=== PATIENT | male | born 1975 | race Asian ===

== ENCOUNTER 2024-06-26 12:03 | Emergency (ER) | payer OTHER, SELFPAY ==
[2024-06-26 12:07] VITALS: BP 111/84; PULSE 114; RESP 15; TEMP 36.9; O2SAT 95
--- NOTE | 2024-06-26 12:30 | DI.RAD_ITS ---
Exam(s) XR LUMBAR SPINE AP, LAT EXAM: XR LUMBAR SPINE AP, LAT CLINICAL HISTORY: BACK PAIN. TECHNIQUE: 2D digital imaging was performed. COMPARISON: No exams were available for comparison FINDINGS: Two views. No evidence of compression fracture or listhesis. The main finding here is a fracture of the posterior aspect of the right 11th rib, not displaced. Th ere is also a probable fracture of the right transverse process of L1. No 12th rib fracture identifi ed. IMPRESSION: Nondisplaced fracture of 11th right rib and possibly also right transverse process of L1. DATA REPOSITORY: RADIATION DOSE DELIVERED:
--- NOTE | 2024-06-26 12:30 | DI.RAD_ITS ---
Exam(s) XR THORACOLUMB JUNCT 2V EXAM: XR THORACOLUMB JUNCT 2V CLINICAL HISTORY: BACK PAIN. TECHNIQUE: 2D digital imaging was performed. COMPARISON: No exams were available for comparison FINDINGS: Two views-AP and lateral There is a nondisplaced fracture of the right 11th rib. There also appears to be a fracture of the r ight transverse process of L1. There does not appear to be a fracture in the ipsilateral 12th rib. There are no compression fractures in the thoracic spine up to the T5 level which is the uppermost fi eld of view of these images. No scoliosis. No disc space narrowing. No osseous lesions. IMPRESSION: Right 11th rib fracture and also fracture of the right transverse process of L1. DATA REPOSITORY: RADIATION DOSE DELIVERED:
--- NOTE | 2024-06-26 14:15 | DI.CT_ITS ---
Exam(s) CT THORACIC LUMBAR SPINE WO EXAM: CT THORACIC LUMBAR SPINE WO CLINICAL HISTORY: TRAUMA. TECHNIQUE: Imaging Protocol: Axial computed tomography images with coronal and sagittal reformatted images were created and reviewed. CONTRAST MATERIAL: Intravenous: None COMPARISON: Plain films earlier same day FINDINGS: THORACIC SPINAL COLUMN: There are acute fractures in the posterior aspect of the right 11th rib and right 12th ribs as well a s acute fractures of the right transverse process is of L1, L2, and L3. No left-sided fractures iden tified. There are no compression fractures nor listhesis. No obvious thoracic spine disc herniation s. There is no facet malalignment. No acute compromise of the spinal canal. No subjacent lung cont usion evident. LUMBOSACRAL SPINAL COLUMN: There are no compression fractures. As described above, there are acute fractures of the right trans verse process is of L1, L2, and L3 with moderate displacement at these fracture sites. No involvemen t of the pedicles and laminae. There are no osteophytic fragments in the spinal canal. No disc katina iations. Facet joints of the lumbosacral spine appear unremarkable. IMPRESSION: There are nondisplaced fractures of the posterior aspects of the right 11th and 12th ribs and there a re mildly displaced fractures of the right transverse process is of L1, and L2 and L3 vertebral yanelis s. There are no compression fractures of thoracic and lumbar vertebrae. No listhesis. There is no evidence of acute compromise of the spinal canal. Called by myself to ER physician 06/26/2024 3:15 p.m. RADIATION DOSE DELIVERED: 2,328.21mGy.cm Total DLP DATA REPOSITORY: All CT scans at this facility are submitted to the National Radiology Data Registry (NRDR) Dose Index Registry (DIR) with the [employer] (ACR). RADIATION OPTIMIZATION: All CT scans at this facility use at least one of these dose optimization te chniques: automated exposure control; mA and/or kV adjustment per patient size (includes targeted exa ms where dose is matched to clinical indication); or iterative reconstruction.
[2024-06-26] MEDS: Methocarbamol 500 MG TAB 1000 MG PO (15:23)
[2024-06-26] MEDS: Lidocaine 5% Patch 1 PATCH TP (15:23)
[2024-06-26 15:24] VITALS: BP 115/78; PULSE 78; RESP 16; TEMP 36.8; O2SAT 98
--- NOTE | 2024-06-26 15:24 | ED.GENADUL_ITS ---
Discharge Plan Disposition Patient Disposition: Home Condition: Stable Discharge Details Clinical Impression: Closed rib fracture, Fracture of transverse process of lumbar vertebra Primary Care Provider: None,None ED Provider: Shadia Childs Home Meds and New Rx's Prescriptions: New lidocaine [Lidoderm] 5 % adhesive patch,medicated 1 patch topical DAILY Qty: 15 0RF Rx Instructions: leave on most painful area for up to 12 hrs methocarbamol 750 mg tablet 750 mg PO TID PRN (Reason: spasms) Qty: 20 0RF epinephrine 0.3 mg/0.3 mL auto-injector 0.3 mg IM ONCE PRN (Reason: anaphylaxis) Qty: 2 0RF Rx Instructions: as a single dose; may repeat once No Action multivitamin Tablet 1 tab PO DAILY Discharge Instructions Additional Instructions: Your imaging today was reviewed by a charge master specialist, there is no indication for follow-up with a specialist when you return to [place]. You can follow-up with your PCP for any ongoing pain management needs. You can use the Lidoderm patches that were prescribed, Motrin or Tylenol as needed HPI General Date/Time Provider Initiated Documentation: 06/26/24 12:42 . Limitations to Documentation: no limitations . Information obtained by: patient . HPI Narrative: 48-year-old gentleman without significant past medical history presents for evaluation of acute onset back pain. Just prior to arrival patient slipped on the ice and fell against the stairs striking the middle of his back on the stairs. He did not hit his head or lose consciousness. He reports pain in the middle of his back. He denies any numbness or tingling. He reports no shortness of breath. Related Data Home Medications ?Medication ?Instructions ?Recorded ?Confirmed epinephrine 0.3 mg/0.3 mL 0.3 mg (0.3 mL) IM ONCE PRN 06/26/24 injection, auto-injector anaphylaxis #2 ea lidocaine 5 % topical patch 1 patch topical DAILY #15 ea 06/26/24 (Lidoderm) methocarbamol 750 mg tablet 750 mg PO TID PRN spasms #20 tabs 06/26/24 multivitamin 1 tab PO DAILY 06/26/24 06/26/24 Previous Rx's ?Medication ?Instructions ?Recorded epinephrine 0.3 mg/0.3 mL 0.3 mg (0.3 mL) IM ONCE PRN 06/26/24 injection, auto-injector anaphylaxis #2 ea lidocaine 5 % topical patch 1 patch topical DAILY #15 ea 06/26/24 (Lidoderm) methocarbamol 750 mg tablet 750 mg PO TID PRN spasms #20 tabs 06/26/24 Allergies Allergy/AdvReac Type Severity Reaction Status Date / Time bee venom protein (honey bee) Allergy Severe Anaphylaxis Verified 06/26/24 12:12 shellfish derived Allergy Severe Anaphylaxis Verified 06/26/24 12:12 General Stated Complaint: Nk/Back Pain JANE: 4 Exam Narrative Exam Narrative: Review of Systems: All systems reviewed & are unremarkable except as noted in HPI and below Well-developed, no acute distress NCAT PERRL, normal conjunctiva RRR Unlabored respiratory effort clear bilaterally No neurodeficits, full strength and sensation throughout Midline back tenderness with step-off around T12-L1 Course Vital Signs Vital signs: Vital Signs Temperature 36.9 C 06/26/24 12:07 Pulse 114 H 06/26/24 12:07 Respiratory Rate 15 06/26/24 12:07 Blood Pressure 111/84 06/26/24 12:07 Pulse Oximetry 95 06/26/24 12:07 Temperature 36.9 C 06/26/24 12:07 Pulse 114 H 06/26/24 12:07 Respiratory Rate 15 06/26/24 12:07 Respiratory Effort Normal 06/26/24 12:14 Blood Pressure 111/84 06/26/24 12:07 Blood Pressure Position Sitting 06/26/24 12:07 Pulse Oximetry 95 06/26/24 12:07 Oxygen Delivery Method Room Air 06/26/24 12:07 Oxygen Flow Rate 0 06/26/24 12:07 Pain Level 6 06/26/24 13:14 Medical Decision Making Emergent evaluation of acute traumatic back pain. There is an abnormality noted in the midline back. X-ray of this area was obtained. Patient states this pain is well-controlled did not require any pain medication at the initial evaluation. He is neurologically intact and I do not suspect an acute spinal cord pathology. X-ray images were concerning for fracture nondisplaced posterior rib 11 as well as the transverse process of L1 also nondisplaced. X- ray images were sent to the orthopedic spine service at [facility] who reviewed the images to provide guidance. We did not recommend CT imaging. Recommend pain control as needed. The patient lives in [place] and can follow-up with his PCP. They do not recommend follow-up with an acute spine service. A CT had been ordered prior to speaking with them, and I did cancel this study however the study was still performed. It does reveal that there are fractures at L1, 2 and 3 the transverse process noted. 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 He was provided with Lidoderm patch, a CD of his images to follow-up with his PCP. Recommend Robaxin, Tylenol and Motrin as needed. His fall, his EpiPen's were broken in his backpack and he also requested refill of these be sent to the pharmacy which I did. Quality:SDOH Health Related Social Needs: No Data to Display PFSH All Active Problems Fracture of transverse process of lumbar vertebra (Acute) Closed rib fracture (Acute) Social History Smoking risk assessment performed?: No PAWSS Have you Been Recently Intoxicated or Drunk Within the Last 30 days?: No Have you Ever Experienced Previous Episodes of Alcohol Withdrawal?: No Have you ever Experienced Withdrawal Seizures?: No Have you ever Experienced Delirium Tremens(DT)s?: No Have you ever undergone Alcohol Rehabilitation Treatment (i.e, inpt ot outpatient treatment programs)?: No Have you ever Experienced Blackouts?: No Have you ever Combined Alcohol with other Downers within the last 90 days?: No Have you ever Combined Alcohol with any other Substance of Abuse during the last 90 days?: No Positive Blood Alcohol level on Presentation? [PCS.BAL]: No Evidence of Increased Autonomic Activity (i.e. HR>120, tremor, sweating, agitation, nausea)?: No Result: 0
== END 2024-06-26 15:23 | disposition home or self-care (01) ==
PROVIDERS: Emergency Provider Emergency Medicine
DX: S22.41XA Multiple fractures of ribs, right side, initial encounter for closed fracture (principal); S32.018A Other fracture of first lumbar vertebra, initial encounter for closed fracture; S32.028A Other fracture of second lumbar vertebra, initial encounter for closed fracture; S32.038A Other fracture of third lumbar vertebra, initial encounter for closed fracture; W00.1XXA Fall from stairs and steps due to ice and snow, initial encounter; Y93.01 Activity, walking, marching and hiking; Y92.89 Other specified places as the place of occurrence of the external cause
CPT/HCPCS: 99284; 72080; 72100; 72128; 72131